=== PATIENT | female | born 1995 | race Caucasian/White ===

== ENCOUNTER 2017-03-08 15:17 | Emergency (ER) | payer OTHER ==
[2017-03-08 15:22] VITALS: BP 133/90; PULSE 90; TEMP 98.1; BMI 19.2
--- NOTE | 2017-03-08 15:30 | PDOC ---
Rapid Medical Evaluation Chief Complaint: Injury Time Seen by Provider: 03/08/17 15:23 Medical Evaluation: Allergies Allergy/AdvReac Type Severity Reaction Status Date / Time No Known Allergies Allergy Verified 03/08/17 15:22 Vital Signs Temp Pulse Resp BP Pulse Ox 98.1 F 90 18 133/90 99 03/08/17 15:20 03/08/17 15:20 03/08/17 15:20 03/08/17 15:20 03/08/17 15:20 03/08/17 15:28 Pt presents with complaint of : rt wrist pain x 1 month after fall, no medical follow up On brief exam: FROM, 5+ hand grasp, no deformity, no edema I have ordered the following: none Pt will go to the Emergency Dept for further workup Discharge Disposition - Discharge Dispostion Last Admission D/C Date: 07/27/98 - Referrals - Patient Instructions - Post Discharge Activity
--- NOTE | 2017-03-08 16:59 | PDOC ---
History of Present Illness - General Chief Complaint: Injury Stated Complaint: INJURY Time Seen by Provider: 03/08/17 15:23 History Source: Patient Exam Limitations: No Limitations - History of Present Illness Initial Comments: 03/08/17 17:04 My Chief Complaint: right wrist pain since fall one month ago History of Present Illness: Pt. is a 21 y/o female with no significant medical history here today c/o pain rt. lateral wrist since falling unto her lateral lower arm/wrist one month ago. Pt. denies any other injuries. Pt. reports pain is only with abduction of rt wrist. No gross deformity of wrist/hand or digits noted. Pt. denies any numbness of rt. arm, wrist, hand or digits. Pt. is rt. hand dominant. 03/10/17 19:37 03/10/17 19:43 Occurred: reports: other (one month ago) Severity: reports: mild (rt. lateral wrist ) Upper Extremity Pain Location: right: wrist (lateral ) Method of Injury: reports: fell Modifying Factors: improves with: immobilization Extremity Pain Location - Extremity Pain Location Extremity Pain Locations: right: other (lateral wrist) Past History - Past Medical History Allergies/Adverse Reactions: Allergies Allergy/AdvReac Type Severity Reaction Status Date / Time No Known Allergies Allergy Verified 03/08/17 15:22 Home Medications: Ambulatory Orders NK [No Known Home Medication] 05/13/15 COPD: No Other medical history: denies - Suicide/Smoking/Psychosocial Hx Smoking History: Never smoked Have you smoked in the past 12 months: No Information on smoking cessation initiated: No Hx Alcohol Use: No Drug/Substance Use Hx: No Substance Use Type: None Review of Systems - Review of Systems Able to Perform ROS?: Yes Constitutional: No: Symptoms Reported HEENTM: No: Symptoms Reported Respiratory: No: Symptoms reported Cardiac (ROS): No: Symptoms Reported ABD/GI: No: Symptoms Reported : No: Symptoms Reported Musculoskeletal: Yes: Joint Pain (left lateral wrist tenderness with abduction) . No: Joint Swelling Integumentary: No: Symptoms Reported Neurological: No: Symptoms reported *Physical Exam - Vital Signs Last Vital Signs Temp Pulse Resp BP Pulse Ox 98.1 F 90 18 133/90 99 03/08/17 15:20 03/08/17 15:20 03/08/17 15:20 03/08/17 15:20 03/08/17 15:20 - Physical Exam General Appearance: Yes: Appropriately Dressed Comments:: 03/08/17 16:56 right radial pulse 4+ Extremity: positive: Normal Capillary Refill, Normal Inspection, Normal Range of Motion (rt. wrist, hand and all digits rt. hand ), Tender (with abduction lateral wrist minima,l ). negative: Swelling Integumentary: positive: Normal Color Neurologic: positive: Alert, Normal Response, Respond to painful stimul (right hand, wrist, forearm ), Responsive. negative: Numbness, Sensory Deficit Procedures - Splinting Splint Location: Right: Wrist Splint Type: Yes: Wrist (right ) Post-Proc Neuro Vasc Exam: normal Medical Decision Making - Medical Decision Making 03/10/17 19:40 Pt. is a 21 y/o female with no significant medical history here today c/o pain rt. lateral wrist since falling unto her lateral lower arm/wrist one month ago. Pt. denies any other injuries. Pt. reports pain is only with abduction of rt wrist. No gross deformity of wrist/hand or digits noted. Pt. denies any numbness of rt. arm, wrist, hand or digits. Right wrist pain PLAN: wanted to get xray of rt. wrist, hand however pt. and her mother began to argue about the amount of radiation from a xray, mother telling her she needs to get any MRI. Explained to pt. and mother that an MRI would not be ordered in the ER but could be ordered by orthopedist as an outpt. Pt. agreed with mother to not get xray now but to go to orthopedist wrist splint applied rt. *DC/Admit/Observation/Transfer Diagnosis at time of Disposition: Wrist pain, right - Discharge Dispostion Disposition: HOME Condition at time of disposition: Stable Admit: No - Referrals Referrals: STAFF,NOT ON [Primary Care Provider] - Abdiel Tarango MD [Staff Physician] - - Patient Instructions Additional Instructions: Wear wrist splint during the day he may take off at night Follow up with orthopedist Dr. Tarango he will be here 03/12/2017 for appointment his office is located in this hospital You may take Aleve or Advil [id number] as directed by entry level lab technician Avoid any strenuous activities using your right wrist Return to emergency room if symptoms worsen numbness of right hand or wrist or worsening pain Patient voiced understanding of discharge instructions and all questions were answered - Post Discharge Activity
== END 2017-03-08 17:08 | disposition home or self-care (01) ==
LOC: JERFT 15:17
PROC: 2W3CX1Z Immobilization of Right Lower Arm using Splint (ICD-10-PCS; principal; 2017-03-08)
DX: M25.531 Pain in right wrist (principal); W19.XXXA Unspecified fall, initial encounter; Y93.89 Activity, other specified; Y92.89 Other specified places as the place of occurrence of the external cause; Y99.8 Other external cause status
CPT/HCPCS: 99281-25

== ENCOUNTER 2023-10-22 20:09 | Emergency (ER) | payer BC, OTHER ==
[2023-10-22 20:14] VITALS: BP 112/77; PULSE 77; RESP 20; TEMP 98.4; BMI 19.0
[2023-10-22] MEDS ORDERED: ONDANSETRON 4 MG/2 ML VIAL ONE (21:09)
[2023-10-22] MEDS ORDERED: ACETAMINOPHEN INJECTION 100 ML IVPB ONE (21:09)
[2023-10-22] MEDS: ACETAMINOPHEN 1000 MG/100 ML BAG IVPB ONE (21:35)
[2023-10-22] MEDS: SODIUM CHLORIDE 0.9% 500 ML INFUS.BAG IV ONE (21:35)
[2023-10-22] MEDS: ONDANSETRON 4 MG/2 ML VIAL IVPUSH ONE (21:35)
[2023-10-22 21:48] LABS: BASO % 0.2 % (0-2.0); EOS % 0.3 % (0-4.5); HEMATOCRIT 39.1 % (32.4-45.2); HEMOGLOBIN 13.1 GM/dL (10.7-15.3); LYMPH % 10.7 % (8-40); MCH 27.3 pg (25.7-33.7); MCHC 33.6 g/dl (32.0-36.0); MEAN CELL VOLUME 81.2 fl (80-96); MEAN PLT VOLUME 8.6 fl (7.5-11.1); MONO % 4.8 % (3.8-10.2); PLATELET COUNT 290 10^3/uL (134-434); RBC 4.81 M/mm3 (3.60-5.2); RDW 13.4 % (11.6-15.6); WHITE BLOOD COUNT 10.6 K/mm3 (4.0-10.0)
[2023-10-22 22:35] LABS: POTASSIUM 4.2 mmol/L (3.5-5.1)
[2023-10-22 22:37] LABS: CALCIUM 9.3 mg/dL (8.5-10.1)
[2023-10-22 22:38] LABS: ALBUMIN 3.6 g/dl (3.4-5.0); BLOOD UREA NITROGEN 16.3 mg/dL (7-18)
[2023-10-22 22:41] LABS: CREATININE 0.9 mg/dL (0.55-1.3)
[2023-10-22 22:42] LABS: BILIRUBIN,TOTAL 0.3 mg/dL (0.2-1); TOT PROT 7.1 g/dl (6.4-8.2)
[2023-10-22 23:20] LABS: PH,URINE 5.5 (5.0-8.0); URINE APPEARANCE CLEAR; URINE BILIRUBIN NEGATIVE (NEGATIVE); URINE COLOR YELLOW; URINE GLUCOSE (UA) NEGATIVE (NEGATIVE); URINE KETONE TRACE (NEGATIVE); URINE LEUK ESTERASE NEGATIVE (NEGATIVE); URINE NITRITE NEGATIVE (NEGATIVE); URINE PROTEIN NEGATIVE (NEGATIVE); URINE UROBILINOGEN 0.2 mg/dL (0.2-1.0)
== END 2023-10-23 01:53 | disposition home or self-care (01) ==
LOC: JER 20:09
PROC: 3E033NZ Introduction of Analgesics, Hypnotics, Sedatives into Peripheral Vein, Percutaneous Approach (ICD-10-PCS; principal; 2023-10-22)
PROC: 3E033GC Introduction of Other Therapeutic Substance into Peripheral Vein, Percutaneous Approach (ICD-10-PCS; 2023-10-22)
DX: R10.13 Epigastric pain (principal); R11.0 Nausea; R19.7 Diarrhea, unspecified; R10.31 Right lower quadrant pain
CPT/HCPCS: 36415; 74177-TC; 76830-TC; 80053; 81003; 83690; 84703; 85025; 87086; 99285-25; J0131; Q9967